=== PATIENT | female | born 1960 | race Caucasian/White ===

== ENCOUNTER 2016-03-31 18:20 | Emergency (ER) | payer OTHER ==
[2016-03-31 18:42] VITALS: BP 126/71; PULSE 84; TEMP 98.2; BMI 35.7
--- NOTE | 2016-03-31 19:12 | DIRPT ---
CLINICAL DATA: Acute right knee pain with no injury. EXAM: RIGHT KNEE - COMPLETE 4+ VIEW COMPARISON: None. FINDINGS: There is no evidence of fracture, dislocation, or joint effusion. Vascular calcifications are noted. Severe narrowing of patellofemoral space is noted with osteophyte formation. Severe narrowing of lateral joint space is noted with osteophyte formation. IMPRESSION: Severe degenerative joint disease is noted. No acute abnormality seen in the right knee. Electronically Signed By: Héctor Baldwin Jr, M.D. On: 03/31/2016 19:09
--- NOTE | 2016-03-31 19:16 | EDPRACDOC ---
- General Information Chief Complaint: Knee Pain Stated Complaint: RT KNEE PAIN NO INJURY Time Seen by Provider: 03/31/16 19:01 Home Medications: Home Medications Meloxicam [Mobic] 7.5 mg PO BID #20 tab 03/31/16 Oxycodone Immediate Release [Oxycodone Immediate Release (OxyIR)] 5 mg PO Q6H PRN #30 tab 03/31/16 Allergies/Adverse Reactions: Allergies Allergy/AdvReac Type Severity Reaction Status Date / Time No Known Allergies Allergy Verified 03/31/16 18:26 - History of Present Illness Onset: 1 DAY HPI: PT PRESENTS TODAY WITH WORSENING RIGHT KNEE PAIN X WEEKS. PT STATES THAT NOW SHE FEELS LIKE IT "GIVES" ON HER. DENIES INJURY, ERYTHEMA, SWELLING. Knee Problem Location: Right Mechanism: Reports: None Circumstances: Reports: None Relevant History: Reports: Arthritis Able to Bear Weight: Limited Pain Severity: Reports: Moderate Associated Signs & Symptoms: Reports: None ED Past Medical History - History Reviewed Yes Nurses notes reviewed and agree except as marked - Patient Medical History Surgical History: Reports: Hysterectomy EDM Review of Systems - Review of Systems ROS Negative Except as Marked: Yes All systems reviewed and were negative except as marked Constitutional: No Symptoms Reported Respiratory: No Symptoms Reported Cardiovascular: No Symptoms Reported Gastrointestinal: No Symptoms Reported Neurological: No Symptoms Reported Musculoskeletal: Knee Integumentary: No Symptoms Reported - Physical Exam Constitutional: Alert (Awake), No apparent distress Oriented to: Time, Person, Place Last recorded Vital Signs: Last Vital Signs Temp 98.2 F 03/31/16 18:41 Pulse 84 03/31/16 18:41 Resp 18 03/31/16 18:41 BP 126/71 03/31/16 18:41 Pulse Ox 99 03/31/16 18:41 Oxygen Pulse Oxygen Saturation 99 O2 Device Room Air Oxygen Flow Rate Fraction of Inspired Oxygen ( FIO2) - HEENT Head: Normal Eye Exam: Normal Neck: Normal, Denies Pain, Midline - Respiratory/Cardiovascular Respiratory: Normal - CTA Cardiovascular: Normal - GI Palpation: Normal Tenderness: Non tender - Musculoskeletal Back: Normal Extremities: Other (NO PAIN WITH ROM/INVERSION/EVERSION; STATES PAIN ONLY WITH BEARING WEIGHT; NO SWELLING/ERYTHEMA NOTED; PEDAL PULSES NORMAL) - Integumentary Skin: Normal Lymphatics: Normal - Neurologic Cerebellar: Normal Mood Description: Normal Thought: Coherent Perception: Normal ED Knee Problem Phys Exam - Musculoskeletal Knee: Normal Knee Ligaments: Normal Knee Meniscus: Normal Thigh: Normal Lower Leg: Normal Distal Function/Circulation: Normal Decision Time to Discharge: 19:13 - Departure Disposition: Home Condition: Good Final Diagnosis: Osteoarthritis of knee Instructions: Osteoarthritis (ED) Education/Counseling Given To: Patient, Family Member Education/Counseling Given Regarding: Diagnosis, Treatment, Follow Up Referrals: Elly Lopez RADIOLOG[facility] SERVICES MANAGER [Primary Care Provider] - One Week Prescriptions: New Meloxicam [Mobic] 7.5 mg PO BID #20 tab Oxycodone Immediate Release [Oxycodone Immediate Release (OxyIR)] 5 mg PO Q6H PRN #30 tab PRN Reason: Pain Additional Instructions: TAKE MEDICATION WITH FOOD. IF SYMPTOMS PERSIST, FOLLOW UP WITH ORTHO/PCP.
== END 2016-03-31 19:29 | disposition home or self-care (01) ==
LOC: EDMC 18:20
DX: M17.10 Unilateral primary osteoarthritis, unspecified knee (principal)
CPT/HCPCS: 99282